=== PATIENT | female | born 1995 | race Caucasian/White ===

== ENCOUNTER 2019-02-07 12:03 | Outpatient (REF) | payer MEDICAID, SELFPAY ==
[2019-02-07 18:56] LABS: HCT 40.9 % (36.0-46.0); HGB 14.5 g/dL (12.0-15.5); Mean Corp. HGB Concentration 35.5 g/dL (32.0-36.0); Mean Corpuscular Hemoglobin 31.8 pg (27.0-33.0); Mean Corpuscular Volume 89.7 fL (80-95); Mean Platelet Volume 10.7 fL (8.0-11.0); Platelet Count 285 x1000/uL (130-400); RBC 4.56 m/cumm (4.00-5.20); RBC Distribution Width 11.3 % (11.7-14.6); White Blood Cell Count 5.64 k/cumm (4.4-10.8)
[2019-02-07 19:16] LABS: Albumin 3.8 g/dL (3.4-5.0); C-Reactive Protein 0.15 mg/dL (0.0-0.3); TSH 0.98 uIU/mL (0.36-3.74)
[2019-02-07 19:37] LABS: ESR 23 mm/hr (0-20)
== END 2019-02-07 12:23 ==
LOC: NCHCN 12:03
PROVIDERS: PCP Internal Medicine; Visit Provider Internal Medicine
DX: K62.5 Hemorrhage of anus and rectum (principal); Z00.00 Encounter for general adult medical examination without abnormal findings
CPT/HCPCS: 85027; 85652; 82040; 84443; 86140

== ENCOUNTER 2024-03-05 11:07 | Emergency (ER) | payer MEDICAID, SELFPAY ==
[2024-03-05 11:15] VITALS: BP 142/83; PULSE 90; RESP 16; TEMP 36.7; O2SAT 98
--- NOTE | 2024-03-05 11:15 | DI.RAD_ITS ---
Exam(s) XR CHEST 2V PA LATERAL EXAM: XR CHEST 2V PA LATERAL CLINICAL HISTORY: shortness of breath. TECHNIQUE: 2D digital imaging was performed. COMPARISON: No exams were available for comparison FINDINGS: 2 views: Heart size is normal. The mediastinum is not widened. Lungs are clear. No infiltrates nor pleural effusions. IMPRESSION: No acute pulmonary findings. DATA REPOSITORY: RADIATION DOSE DELIVERED:
--- NOTE | 2024-03-05 11:28 | ED.GENADUL_ITS ---
Discharge Plan Disposition Patient Disposition: Home Condition: Stable Discharge Details Clinical Impression: Facial swelling Primary Care Provider: Lionel Herrera ED Provider: James Galdamez Home Meds and New Rx's Prescriptions: New prednisone 20 mg tablet See Rx Instructions .ROUTE .COMPLEX Qty: 24 0RF Rx Instructions: Take 60 mg daily for 4 days, then 40 mg daily for 4 days, then 20 mg daily for 4 days Continued aspirin 81 mg capsule 81 mg PO DAILY cholecalciferol (vitamin D3) 10 mcg/drop (400 unit/drop) drops 5 mcg PO DAILY Discharge Instructions Additional Instructions: Continue the famotidine and I have increased your prednisone dose If you not improving this week follow-up with your primary care provider You can take Benadryl as needed, follow dosing instructions on the packaging If you feel more ill or have severe worsening trouble breathing or symptoms such as persistent vomiting return to the emergency department for reevaluation HPI General Mode of arrival: ambulatory . Date/Time Provider Initiated Documentation: 03/05/24 11:21 . Limitations to Documentation: no limitations . Information obtained by: patient . History of Present Illness 28 year old F presents to the emergency department with the chief complaint of swollen face, described as moderate, Patient started experiencing this day(s) (4) and it has been constant. No relieving factors improve symptom(s), No exacerbating factors reported . Patient notes shortness of breath; denies chest pain, fever/chills and nausea/vomiting. Related Data Home Medications ?Medication ?Instructions ?Recorded ?Confirmed aspirin 81 mg capsule 81 mg PO DAILY 03/05/24 03/05/24 cholecalciferol (vitamin D3) 10 5 mcg PO DAILY 03/05/24 03/05/24 mcg/drop (400 unit/drop) oral drops prednisone 20 mg tablet See Rx Instructions .Route 03/05/24 .COMPLEX #24 tabs Previous Rx's ?Medication ?Instructions ?Recorded prednisone 20 mg tablet See Rx Instructions .Route 03/05/24 .COMPLEX #24 tabs Allergies Allergy/AdvReac Type Severity Reaction Status Date / Time No Known Allergies Allergy Unverified 03/05/24 11:34 General Stated Complaint: RashLesion PACHECO: 3 Review of Systems All systems reviewed & are unremarkable except as noted in HPI and below Constitutional Constitutional: Denies chills, Denies fever(s) and Denies weakness Cardiovascular Cardiovascular: Denies chest pain and Reports dyspnea Respiratory Respiratory: Denies cough and Reports dyspnea Gastrointestinal Gastrointestinal: Denies abdominal pain, Denies nausea and Denies vomiting Integumentary/Breasts Skin/Breast: Reports rash Neurologic Neurologic: Denies weakness Psychiatric Psychiatric: Denies depression Exam Const General: no acute distress Orientation: alert [facility] Head: normal to inspection Ears: external ears normal General nose exam: external nose normal Mouth: moist mucous membranes Eyes General: appearance normal, both eyes and all related structures Neck Neck: normal visual inspection Resp Effort & Inspection: normal respiratory effort and able to speak in complete sentences Auscultation: clear to auscultation bilaterally Cardio Jugular venous pressure: no JVD Rate: regular rate Heart Sounds: no murmurs GI Palpation: soft and nontender Skin General skin exam: erythema Neuro General: patient alert and patient oriented x3 Extrem General: normal to inspection Psych Mental Status: mental status grossly normal Course Vital Signs Vital signs: Vital Signs Temperature 36.7 C 03/05/24 11:15 Pulse 90 03/05/24 11:15 Respiratory Rate 16 03/05/24 11:15 Blood Pressure 142/83 H 03/05/24 11:15 Pulse Oximetry 98 03/05/24 11:15 Temperature 36.7 C 03/05/24 11:15 Temperature Source Oral 03/05/24 11:15 Pulse 90 03/05/24 11:15 Respiratory Rate 16 03/05/24 11:15 Blood Pressure 142/83 H 03/05/24 11:15 Blood Pressure Position Sitting 03/05/24 11:15 Pulse Oximetry 98 03/05/24 11:15 Oxygen Delivery Method Room Air 03/05/24 11:15 Oxygen Flow Rate 0 03/05/24 11:15 Pain Level 7 03/05/24 11:15 Medical Decision Making 28-year-old female who denies any significant past medical history comes in with swelling of her face and rashes on her arms since Thursday. She states this started after she ripped up an old rug. She denies any chest pain, abdominal pain, states she feels mildly short of breath. She speaking in full sentences on exam. No signs of respiratory distress. She is noted to have what appears to be hives on her forearms and also her face does appear swollen without sig nificant erythema. Lungs are clear on exam. Her symptoms seem consistent with an allergic reaction, given her lungs are clear and no abdominal symptoms doubt anaphylaxis. She has been on prednisone and famotidine prescribed by [facility] when she was seen there several days ago. I will check a CBC and to evaluate for possible electrolyte abnormalities and also give a dose of IV Benadryl and Solu-Medrol. She is got no mucous membrane lesions doubt Resendiz- Roe or TENS. I will obtain a chest x-ray to exclude a thoracic mass as the cause of her facial swelling. Patient feeling better, rash on forearms has resolved, still's mild swelling of her face. She is only on 20 mg of prednisone I will bump this up to 60 mg daily for several days and then have her titrate down. She is stable for discharge and will follow-up with her PCP, return precautions given Differential Diagnosis Differential Diagnosis: Reaction, urticaria, facial edema. Quality:SDOH Health Related Social Needs: No Data to Display PFSH All Active Problems (Updated 03/05/24 @ 12:46 by James Galdamez MD) Facial swelling (Acute) Social History Smoking risk assessment performed?: No
[2024-03-05] MEDS: diphenhydrAMINE 50 MG/ML VIAL 25 MG IVP (11:52)
[2024-03-05] MEDS: methylPREDNISolone SUCC 125 MG VIAL IVP (11:53)
[2024-03-05 11:54] LABS: Abs Immature Grans 0.06 10^3/uL (0.0-0.06); Absolute Basophil Count 0.05 10^3/uL (0.0-0.2); Absolute Eosinophil Count 0.08 10^3/uL (0.0-0.7); Absolute Lymphocyte Count 1.18 10^3/uL (1.2-3.4); Absolute Monocyte Count 0.25 10^3/uL (0.1-0.8); Absolute Neutrophil Count 8.59 10^3/uL (1.2-6.7); Basophils % 0.5 %; Eosinophils % 0.8 %; HCT 45.4 % (36.0-46.0); HGB 15.3 g/dL (11.2-15.7); Immature Grans % 0.6 %; Lymphocytes % 11.6 %; MCH 31.4 pg (27.0-33.0); MCHC 33.7 % (32.0-36.0); MCV 93 fL (80-95); MPV 10.1 fL (8.0-11.0); Monocytes % 2.4 %; Neutrophils % 84.1 %; Platelet Count 290 10^3/uL (130-400); RBC 4.88 10^6/uL (3.93-5.22); RDW 11.2 % (11.7-14.6); RDW-SD 38.4 fL; WBC 10.21 10^3/uL (4.4-10.8)
[2024-03-05] MEDS: Normal Saline Flush 10 ML SYR IVP (11:56)
[2024-03-05 12:08] LABS: ALT 23 U/L (14-59); AST 10 U/L (15-37); Albumin 3.9 g/dL (3.4-5.0); Alkaline Phosphatase 84 U/L (46-116); BUN 9 mg/dL (7-18); Bilirubin, Total 0.29 mg/dL (0.2-1.0); CREATININE 0.9 mg/dL (0.55-1.02); Calcium 8.9 mg/dL (8.5-10.1); Chloride 106 mmol/L (98-107); Glucose 101 mg/dL (74-106); Magnesium 1.9 mg/dL (1.8-2.4); Potassium 3.9 mmol/L (3.5-5.1); Sodium 142 mmol/L (136-145); Total Protein 7.9 g/dL (6.4-8.2)
[2024-03-05 12:11] LABS: HCG Qual (Serum) Negative
--- NOTE | 2024-03-05 12:34 | DI.VRAD_ITS ---
PROCEDURE INFORMATION: Exam: XR Chest Exam date and time: 03/05/2024 12:16 PM Age: 28 years old Clinical indication: Shortness of breath TECHNIQUE: Imaging protocol: Radiologic exam of the chest. Views: 2 views. COMPARISON: No relevant prior studies available. FINDINGS: Lungs: Unremarkable. No consolidation. Pleural spaces: Unremarkable. No pleural effusion. No pneumothorax. Heart/Mediastinum: Unremarkable. No cardiomegaly. Bones/joints: Unremarkable. IMPRESSION: No acute findings. Dictated and Authenticated by: Subha Kennedy MD. Ordering:KATELYN Ramirez MD
[2024-03-05 12:43] VITALS: BP 148/74; PULSE 69; RESP 16; O2SAT 100
--- OUTSIDE RECORDS SUMMARY | 2024-03-05 12:46 | XMS_ITS | Continuity of Care Document ---
Author Organization [facility] Address [address] [place] [address] Encounter [facility] Date(s): 09/01/22 - 09/01/22 [facility] [address] [place] [address] Encounter Diagnosis Asthma exacerbation(Discharge Diagnosis) - 09/01/22 Unspecified asthma with (acute) exacerbation(Final) - Discharge Disposition: Home or Self Care Attending Physician: Lionel Jackson MD Admitting Physician: Lionel Jackson MD Functional Status 09/01/22 Family Member Travel History Last travel within 7 days Recent Travel History No recent travel Other exposure to Infectious Disease Non e Medications albuterol 90 mcg/inh aerosol inhaler 1 puffs, Inhale, every 4 hr, PRN as needed for wheezing, # 8 g, 0 Refill(s), 09/09/22 11:30:00 EDT,Pharmacy: [facility], 157.5, cm, 09/01/22 10:46:00 EDT, Height/Length Dosing, 59, kg, 09/01/22 10:46:00 EDT, Weight Dosing Start Date: 09/01/22 Stop Date: 09/09/22 Status: Ordered predniSONE 20 mg oral tablet 20 mg = 1 tab, Oral, Daily, X 2 days, # 2 tab, 0 Refill(s), 09/03/22 11:29:00 EDT, Pharmacy: [facility], 157.5, cm, 09/01/22 10:46:00 EDT, Height/Length Dosing, 59, kg, 09/01/22 10:46:00 EDT, Weight Dosing Start Date: 09/01/22 Stop Date: 09/03/22 Status: Ordered Elite 0 Refill(s) Start Date: 09/01/22 Status: Ordered Vital Signs Most recent to oldest [Reference Range]: 1 Temperature Temporal Artery [36-38 Deg C ] 36.6 Deg C (09/01/22 10:39 AM) Temperature Temporal Artery (DegF) [97.3 -100 Deg F] 97.88 Deg F (09/01/22 10:39 AM) Peripheral Pulse Rate [60-100 bpm] 97 bp m (09/01/22 10:39 AM) Respiratory Rate [12-24 br/min] 22 br/mi n (09/01/22 10:39 AM) Blood Pressure [90-140/60-90 mmHg] 133/7 1mmHg (09/01/22 10:39 AM) Weight Dosing 59.00 kg (09/01/22 10:46 AM) Weight Estimated 59.00 kg (09/01/22 10:39 AM) Height/Length Dosing 157.500 cm (09/01/22 10:46 AM) Height/Length Estimated 157.500 cm (09/01/22 10:39 AM) Social History Social History Type Response Tobacco Never tobacco user T obacco Use:. Sex Female Hospital Discharge Instructions Patient Education 09/01/2022 10:31:10 Asthma Attack Asthma Attack Asthma attack, also called acute bronchospasm, is the sudden narrowing and tightening of the air passages, which limits the amount of oxygen that can get into the lungs. The narrowing is caused by inflammation and tightening of the muscles in the air tubes (bronchi) in the lungs. Too much mucus is also produced, which narrows the airways more. This can cause trouble breathing, loud breathing (wheezing), and coughing. The goal of treatment is to open the airways in the lungs and reduce inflammation. What are the causes? Possible causes or triggers of this condition include: ??? Animal dander, dust mites, or cockroaches. ??? Mold, pollen from trees or grass, or cold air. ??? Air pollutants such as dust, household wildlife conservation professor, aerosol sprays, strong chemicals, strong odors, and smoke of any kind. ??? Stress or strong emotions such as crying or laughing hard. ??? Exercise or activity that requires a lot of energy. ??? Substances in foods and drinks, such as dried fruits and wine, called sulfites. ??? Certain medicines or medical conditions such as: ??? Aspirin or beta-blockers. ??? Infections or inflammatory conditions, such as a flu (influenza), a cold, pneumonia, or inflammation of the nasal membranes (rhinitis). ??? Gastroesophageal reflux disease (GERD). GERD is a condition in which stomach acid backs up intoyour esophagus and spills into your trachea (windpipe), which can irritate your airways. What are the signs or symptoms? Symptoms of this condition include: ??? Wheezing. This may sound like whistling while breathing. This may only happen at night. ??? Excessive coughing. This may only happen at night. ??? Chest tightness or pain. ??? Shortness of breath. ??? Feeling like you cannot get enough air no matter how hard you breathe (air hunger). How is this diagnosed? This condition may be diagnosed based on: ??? Your medical history. ??? Your symptoms. ??? A physical exam. ??? Tests to check for other causes of your symptoms or other conditions that may have triggered your asthma attack. These tests may include: ??? A chest X-ray. ??? Blood tests. ??? Tests to assess lung function, such as breathing into a device that measures how much air you can inhale and exhale (spirometry). How is this treated? Treatment for this condition depends on the severity and cause of your asthma attack. ??? For mild attacks, you may receive medicines through a hand-held inhaler (metered dose inhaler, or MDI) or through a device that turns liquid medicine into a mist (nebulizer). These medicines include: ??? Quick relief or rescue medicines that quickly relax the airways and lungs. ??? Long-acting medicines that are used daily to prevent (control) your asthma symptoms. ??? For moderate or severe attacks, you may be treated with steroid medicines by mouth or through an IV injection at the hospital. ??? For severe attacks, you may need oxygen therapy or a breathing machine (ventilator). ??? If your asthma attack was caused by an infection from bacteria, you will be given antibiotic medicines. Follow these instructions at home: Medicines ??? Take xlod-yct-wsutmoa and prescription medicines only as told by your health care provider. ??? Keep your medicines up-to-date. ??? Make sure you have all of your medicines available at all times. ??? If you were prescribed an antibiotic medicine, take it as told by your health care provider. Donot stop taking the antibiotic even if you start to feel better. ??? Tell your doctor if you may be to make sure your asthma medicine is safe to use duringpregnancy. Avoiding triggers ??? Keep track of things that trigger your asthma attacks. Avoid exposure to these triggers. ??? Do not use any products that contain nicotine or tobacco, such as cigarettes, e-cigarettes, andchewing tobacco. If you need help quitting, ask your health care provider. ??? When there is a lot of pollen, air pollution, or humidity, keep windows closed and use an air conditioner or go to places with air conditioning. Asthma action plan ??? Work with your health care provider to make a written plan for managing and treating your asthma attacks (asthma action plan). This plan should include: ??? A list of your asthma triggers and how to avoid them. ??? A list of symptoms that you may have during an asthma attack. ??? Information about which medicine to take, when to take the medicine and how much of the medicine to take. ??? Information to help you understand your peak flow measurements. ??? Daily actions that you can take to control your asthma symptoms. ??? Contact information for your health care providers. ??? If you have an asthma attack, act quickly. Follow the emergency steps on your written asthma action plan. This may prevent you from needing to go to the hospital. General instructions ??? Avoid excessive exercise or activity until your asthma attack goes away. Ask your health care provider what activities are safe for you and when you can return to your normal activities. ??? Stay up to date on all your vaccines, such as flu and pneumonia vaccines. ??? Drink enough fluid to keep your urine pale yellow. Staying hydrated helps keep mucus in your lungs thin so it can be coughed up easily. ??? Do not use alcohol until you have recovered. ??? Keep all follow-up visits as told by your health care provider. This is important. Asthma requires careful medical care. Contact a health care provider if: ??? You have followed your action plan for 1 hour and your peak flow reading is still at 50???79%. This is in the yellow zone, which means caution. ??? You need to use your quick reliever medicine more frequently than normal. ??? Your medicines are causing side effects, such as rash, itching, swelling, or trouble breathing. ??? Your symptoms do not improve after 48 hours. ??? You cough up mucus that is thicker than usual. ??? You have a fever. Get help right away if: ??? Your peak flow reading is less than 50% of your personal best. This is in the red zone, which means danger. ??? You have trouble breathing. ??? You develop chest pain or discomfort. ??? Your medicines no longer seem to be helping. ??? You are coughing up bloody mucus. ??? You have a fever and your symptoms suddenly get worse. ??? You have trouble swallowing. ??? You feel very tired, and breathing becomes tiring. These symptoms may represent a serious problem that is an emergency. Do not wait to see if the symptoms will go away. Get medical help right away. Call your local emergency services (911 in the [place] Do not drive yourself to the hospital. Summary ??? Asthma attacks are caused by narrowing or tightness in air passages, which causes shortness of breath, coughing, and loud breathing (wheezing). ??? Many things can trigger an asthma attack, such as allergens, weather changes, exercise, strong odors, and smoke of any kind. ??? If you have an asthma attack, act quickly. Follow the emergency steps on your written asthma action plan. ??? Get help right away if you have severe trouble breathing, chest pain, or fever, or if your homemedicines are no longer helping with your symptoms. This information is not intended to replace advice given to you by your health care provider. Make sure you discuss any questions you have with your health care provider. Document Revised: 03/27/2020 Document Reviewed: 03/27/2020 [employer] Patient Education ?? 2021 [employer]. 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 It feels tight 99% on RA, pt states I'm 10 weeks . it's slowly getting better, it was worse earlier History Of Present Illness: 26-year-old female past medical history asthma??currently 10 weeks presents with asthma exacerbation.?? She states she typically has an inhaler at home??to help with her symptoms however sheis currently in the out in [place] and visiting back home and she does not have any of hermedications with her. ??She had some upper respiratory symptoms with cough cold congestion, no fevers, this started yesterday,??and she woke up this morning short of breath and wheezing. ??Came into the ED for evaluation. ??Denies any other symptoms no nausea vomiting chest pain abdominal pain. Review of Systems: Wheezing, dyspnea Physical Exam Vitals & Measurements T:??36.6?C ??(Temporal Artery)?? HR:??97??(Peripheral)?? RR:??22?? BP:??133/71?? SpO2:??99%?? HT:??157.500??cm?? WT:??59.00??kg??(Estimated)?? O2 Therapy:??Room air?? General: Alert and oriented, well nourished,?No??acute distress Eye: PERRL, EOMI,?Normal?conjunctiva HENT: Normocephalic Lungs: Slight wheezing bilaterally,?Non-labored?? respiration Heart:?Normal? rate,?Regular??rhythm Skin: Skin is warm, dry and pink,?No??rashes,?No??lesions Neurologic: Awake, alert and oriented X4 Psychiatric: Cooperative, appropriate mood and affect Medical Decision Makin-year-old female presents with asthma exacerbation, likely etiology upper respiratory infection??with cough cold congestion symptoms starting yesterday and wheezing and dyspnea starting today.?? She is in the out in [place] at the moment and does not have??any??of her medications here??at home. ??36.6, 133/71, 97, 22, 99%.?? She is wheezing bilaterally but not significantly and in no acute respiratory distress speaking in full sentences.?? Patient was given DuoNebs, did have improvement subjectively in her breathing, feels like she is ready to go home. ??She was given 2 more days of prednisone 20 mg tablets as well as??an inhaler to go home with an inhaler prescription.?? Given strict return precautions ED. ??Discharge stable condition with primary care follow-up. Procedure No Qualifying Data Assessment/Plan 1.??Asthma exacerbation??J45.901 Ordered: albuterol 90 mcg/inh aerosol inhaler, 1 puffs, Inhale, every 4 hr, PRN as needed for wheezing, # 8 g, 0 Refill(s), 09/09/22 11:30:00 EDT, Pharmacy: [facility], 157.5, cm, 09/01/22 10:46:00 EDT, Height/Length Dosing, 59, kg, 09/01/22 10:46:00 EDT, Weight Dosing predniSONE 20 mg oral tablet, 20 mg = 1 tab, Oral, Daily, X 2 days, # 2 tab, 0 Refill(s), 09/03/22 11:29:00 EDT, Pharmacy: [facility], 157.5, cm, 09/01/22 10:46:00 EDT, Height/Length Dosing, 59, kg, 09/01/22 10:46:00 EDT, Weight Dosing Discharge Patient, 09/01/22 11:29:00 EDT, Home Independently, Constant Indicator ?? Patient Education Asthma Attack Follow Up With When Contact Information Follow up with primary care provider Within 1 month Additional Instructions: Medication Reconciliation New Prescription albuterol (albuterol 90 mcg/inh aerosol inhaler)1 Puffs Inhale (breathe in) every 4 hours as neededas needed for wheezing. Refills: 0. ?? predniSONE (predniSONE 20 mg oral tablet)1 tab Oral (given by mouth) every day for 2 Days. Refills:0. ?? Unchanged multivitamin, ( Elite) Problem List/Past Medical History Ongoing No qualifying data Historical No qualifying data Medication Administration Given !-DuoNeb, 3 mL, Inhale albuterol 90 mcg/inh aerosol inhaler, 1 inh, Inhale predniSONE, 20 mg, Oral Allergies No active allergies Social History Alcohol Never Electronic Cigarette/Vaping Electronic Cigarette Use: Never. Substance Use Never Tobacco Never tobacco user Tobacco Use:. Electronically Signed on 09/01/22 11:31 AM Manish Waldrop MD Emergency department Discharge instructions * Manish Waldrop MD: PERFORM Event Display: ED Discharge Information Authored Date: [id number] LEO KU :1995 Age:26 years Sex:Female Visit Date:09/01/2022 Discharge Instructions We would like to thank you for allowing us to assist you with your healthcare needs. The following includes patient education materials and information regarding your injury/illness. Diagnosis from Today's Visit Asthma exacerbation Discharge Vitals Temperature??(Temporal Artery) 97.9 ??F (36.6 ??C) Heart Rate??(Peripheral) 97 Respiratory Rate?? 22 Blood Pressure?? 133/71?? Height?? 62.01 in (157.500 cm) Weight??(Estimated) 130.10 lb (59.00 kg) Allergies No active allergies What to Do Next You Need to Schedule the Following Appointments Follow Up with??Follow up with primary care provider When:??Within 1 month You were treated today on an emergency basis; it may be herring to contact your primary care provider to notify them of your visit today. You may have been referred to your regular doctor or a specialist, please follow up as instructed. If your condition worsens or you can't get in to see the doctor, contact the Emergency Department. Medications What How Much When Why Instructions Next Dose New albuterol (albuterol 90 mcg/ inh aerosol inhaler) 1 Puffs Inhale (breathe in) Every 4 hours as needed for as needed for wheezing Asthma exacerbation Pickup at [facility] New predniSONE (predniSONE 20 mg oral tablet) 1 tab Oral (given by mouth) Every day Asthma exacerbation Duration: 2 Days Pickup at [facility] Unchanged multivitamin, ( Elite) Pharmacy Information [facility]: [address], [place] [phone] Education Materials Asthma Attack Asthma attack, also called acute bronchospasm, is the sudden narrowing and tightening of the air passages, which limits the amount of oxygen that can get into the lungs. The narrowing is caused by inflammation and tightening of the muscles in the air tubes (bronchi) in the lungs. Too much mucus is also produced, which narrows the airways more. This can cause trouble breathing, loud breathing (wheezing), and coughing. The goal of treatment is to open the airways in the lungs and reduce inflammation. What are the causes? Possible causes or triggers of this condition include: ? Animal dander, dust mites, or cockroaches. ? Mold, pollen from trees or grass, or cold air. ? Air pollutants such as dust, household wildlife conservation professor, aerosol sprays, strong chemicals, strong odors, and smoke of any kind. ? Stress or strong emotions such as crying or laughing hard. ? Exercise or activity that requires a lot of energy. ? Substances in foods and drinks, such as dried fruits and wine, called sulfites. ? Certain medicines or medical conditions such as: ? Aspirin or beta-blockers. ? Infections or inflammatory conditions, such as a flu (influenza), a cold, pneumonia, or inflammation of the nasal membranes (rhinitis). ? Gastroesophageal reflux disease (GERD). GERD is a condition in which stomach acid backs up into your esophagus and spills into your trachea (windpipe), which can irritate your airways. What are the signs or symptoms? Symptoms of this condition include: ? Wheezing. This may sound like whistling while breathing. This may only happen at night. ? Excessive coughing. This may only happen at night. ? Chest tightness or pain. ? Shortness of breath. ? Feeling like you cannot get enough air no matter how hard you breathe (air hunger). How is this diagnosed? This condition may be diagnosed based on: ? Your medical history. ? Your symptoms. ? A physical exam. ? Tests to check for other causes of your symptoms or other conditions that may have triggered your asthma attack. These tests may include: ? A chest X-ray. ? Blood tests. ? Tests to assess lung function, such as breathing into a device that measures how much air you can inhale and exhale (spirometry). How is this treated? Treatment for this condition depends on the severity and cause of your asthma attack. ? For mild attacks, you may receive medicines through a hand-held inhaler (metered dose inhaler, or MDI) or through a device that turns liquid medicine into a mist (nebulizer). These medicines include: ? Quick relief or rescue medicines that quickly relax the airways and lungs. ? Long-acting medicines that are used daily to prevent (control) your asthma symptoms. ? For moderate or severe attacks, you may be treated with steroid medicines by mouth or through an IVinjection at the hospital. ? For severe attacks, you may need oxygen therapy or a breathing machine (ventilator). ? If your asthma attack was caused by an infection from bacteria, you will be given antibiotic medicines. Follow these instructions at home: Medicines ? Take dbsd-xlg-gajckhv and prescription medicines only as told by your health care provider. ? Keep your medicines up-to-date. ? Make sure you have all of your medicines available at all times. ? If you were prescribed an antibiotic medicine, take it as told by your health care provider. Do notstop taking the antibiotic even if you start to feel better. ? Tell your doctor if you may be to make sure your asthma medicine is safe to use during . Avoiding triggers ? Keep track of things that trigger your asthma attacks. Avoid exposure to these triggers. ? Do not use any products that contain nicotine or tobacco, such as cigarettes, e- cigarettes, and chewing tobacco. If you need help quitting, ask your health care provider. ? When there is a lot of pollen, air pollution, or humidity, keep windows closed and use an air conditioner or go to places with air conditioning. Asthma action plan ? Work with your health care provider to make a written plan for managing and treating your asthma attacks (asthma action plan). This plan should include: ? A list of your asthma triggers and how to avoid them. ? A list of symptoms that you may have during an asthma attack. ? Information about which medicine to take, when to take the medicine and how much of the medicine totake. ? Information to help you understand your peak flow measurements. ? Daily actions that you can take to control your asthma symptoms. ? Contact information for your health care providers. ? If you have an asthma attack, act quickly. Follow the emergency steps on your written asthma actionplan. This may prevent you from needing to go to the hospital. General instructions ? Avoid excessive exercise or activity until your asthma attack goes away. Ask your health care provider what activities are safe for you and when you can return to your normal activities. ? Stay up to date on all your vaccines, such as flu and pneumonia vaccines. ? Drink enough fluid to keep your urine pale yellow. Staying hydrated helps keep mucus in your lungs thin so it can be coughed up easily. ? Do not use alcohol until you have recovered. ? Keep all follow-up visits as told by your health care provider. This is important. Asthma requires careful medical care. Contact a health care provider if: ? You have followed your action plan for 1 hour and your peak flow reading is still at 50???79%. Thisis in the yellow zone, which means caution. ? You need to use your quick reliever medicine more frequently than normal. ? Your medicines are causing side effects, such as rash, itching, swelling, or trouble breathing. ? Your symptoms do not improve after 48 hours. ? You cough up mucus that is thicker than usual. ? You have a fever. Get help right away if: ? Your peak flow reading is less than 50% of your personal best. This is in the red zone, which meansdanger. ? You have trouble breathing. ? You develop chest pain or discomfort. ? Your medicines no longer seem to be helping. ? You are coughing up bloody mucus. ? You have a fever and your symptoms suddenly get worse. ? You have trouble swallowing. ? You feel very tired, and breathing becomes tiring. These symptoms may represent a serious problem that is an emergency. Do not wait to see if the symptoms will go away. Get medical help right away. Call your local emergency services (911 in the [place] Do not drive yourself to the hospital. Summary ? Asthma attacks are caused by narrowing or tightness in air passages, which causes shortness of breath, coughing, and loud breathing (wheezing). ? Many things can trigger an asthma attack, such as allergens, weather changes, exercise, strong odors, and smoke of any kind. ? If you have an asthma attack, act quickly. Follow the emergency steps on your written asthma actionplan. ? Get help right away if you have severe trouble breathing, chest pain, or fever, or if your home medicines are no longer helping with your symptoms. This information is not intended to replace advice given to you by your health care provider. Make sure you discuss any questions you have with your health care provider. Document Revised: 03/27/2020 Document Reviewed: 03/27/2020 [employer] Patient Education ?? 2021 [employer] Tests Performed Medications and Immunizations Administered Given !-DuoNeb, 3 mL, Inhale albuterol 90 mcg/inh aerosol inhaler, 1 inh, Inhale predniSONE, 20 mg, Oral Patient/Regulatory Specialist Signature Patient Name:LEO KU I have received this information and my questions have been answered. Patient/Regulatory Specialist Name: Patient/Regulatory Specialist Signature: Relationship to Patient: Witness Name/Signature: Date: Electronically Signed on: 09/01/2022 11:31 EDTSigned by:[facility] Emergency department Note * Elo Leon M: PERFORM Event Display: ED Notes Authored Date: [id number] Patient Care team information Care Team Personnel Name: Nidia Johnson Position: Nurse Member Role: ED Nurse Name: Manish Waldrop MD Position: Physician Member Role: ED Physician Address: Address: [facility] [address], [place] [address] Care Team Related Persons Name: NIDIA CROCKETT
--- OUTSIDE RECORDS SUMMARY | 2024-03-05 12:46 | XMS_ITS | Continuity of Care Document ---
Author Organization [facility] Address [address] [place] [address] Encounter [id number] Date(s): 09/08/22 - 09/08/22 [facility] [address] [place] [address] Encounter Diagnosis Viral respiratory infection(Discharge Diagnosis) - 09/08/22 Other viral agents as the cause of diseases classified elsewhere(Discharge Diagnosis) - 09/08/22 Seasonal allergies(Discharge Diagnosis) - 09/08/22 Viral sinorhinitis(Discharge Diagnosis) - 09/08/22 Discharge Disposition: Home or Self Care Attending Physician: Iveth Castro MD Admitting Physician: Iveth Castro MD Allergies, Adverse Reactions, Alerts No Known Medication Allergies Medications albuterol 90 mcg/inh aerosol inhaler 1 puffs, Inhale, every 4 hr, PRN as needed for wheezing, # 8 g, 0 Refill(s), 09/09/22 11:30:00 EDT,Pharmacy: [facility] #[id number], 157.5, cm, 09/01/22 10:46:00 EDT, Height/Length Dosing, 59, kg, 09/01/22 10:46:00 EDT, Weight Dosing Start Date: 09/01/22 Stop Date: 09/09/22 Status: Ordered Elite 0 Refill(s) Start Date: 09/01/22 Status: Ordered Vital Signs Most recent to oldest [Reference Range]: 1 Temperature Temporal Artery [36-38 Deg C ] 36.6 Deg C (09/08/22 6:28 PM) Peripheral Pulse Rate [60-100 bpm] 89 bp m (09/08/22 6:28 PM) Respiratory Rate [12-24 br/min] 16 br/mi n (09/08/22 6:28 PM) Blood Pressure [90-140/60-90 mmHg] 111/7 5mmHg (09/08/22 6:28 PM) Weight Dosing 61.00 kg (09/08/22 6:32 PM) Weight Estimated 61.00 kg (09/08/22 6:28 PM) Height/Length Dosing 157.000 cm (09/08/22 6:32 PM) Height/Length Estimated 157.000 cm (09/08/22 6:28 PM) Social History Social History Type Response Tobacco Never tobacco user T obacco Use:. Sex Female Hospital Discharge Instructions Patient Education 09/08/2022 17:52:36 Allergic Rhinitis, Adult Allergic Rhinitis, Adult Allergic rhinitis is an allergic reaction that affects the mucous membrane inside the nose. The mucous membrane is the tissue that produces mucus. There are two types of allergic rhinitis: ??? Seasonal. This type is also called hay fever and happens only during certain seasons. ??? Perennial. This type can happen at any time of the year. Allergic rhinitis cannot be spread from person to person. This condition can be mild, moderate, or severe. It can develop at any age and may be outgrown. What are the causes? This condition is caused by allergens. These are things that can cause an allergic reaction. Allergens may differ for seasonal allergic rhinitis and perennial allergic rhinitis. ??? Seasonal allergic rhinitis is triggered by pollen. Pollen can come from grasses, trees, and weeds. ??? Perennial allergic rhinitis may be triggered by: ??? Dust mites. ??? Proteins in a pet's urine, saliva, or dander. Dander is skin cells from a pet. ??? Smoke, mold, or car fumes. What increases the risk? You are more likely to develop this condition if you have a family history of allergies or other conditions related to allergies, including: ??? Allergic conjunctivitis. This is inflammation of parts of the eyes and eyelids. ??? Asthma. This condition affects the lungs and makes it hard to breathe. ??? Atopic dermatitis or eczema. This is alf (chronic) inflammation of the skin. ??? Food allergies. What are the signs or symptoms? Symptoms of this condition include: ??? Sneezing or coughing. ??? A stuffy nose (nasal congestion), itchy nose, or nasal discharge. ??? Itchy eyes and tearing of the eyes. ??? A feeling of mucus dripping down the back of your throat (postnasal drip). ??? Trouble sleeping. ??? Tiredness or fatigue. ??? Headache. ??? Sore throat. How is this diagnosed? This condition may be diagnosed with your symptoms, medical history, and physical exam. Your healthcare provider may check for related conditions, such as: ??? Asthma. ??? [place] eye. This is eye inflammation caused by infection (conjunctivitis). ??? Ear infection. ??? Upper respiratory infection. This is an infection in the nose, throat, or upper airways. You may also have tests to find out which allergens trigger your symptoms. These may include skin tests or blood tests. How is this treated? There is no cure for this condition, but treatment can help control symptoms. Treatment may include: ??? Taking medicines that block allergy symptoms, such as corticosteroids and antihistamines. Medicine may be given as a shot, nasal spray, or pill. ??? Avoiding any allergens. ??? Being exposed again and again to tiny amounts of allergens to help you build a defense against allergens (immunotherapy). This is done if other treatments have not helped. It may include: ??? Allergy shots. These are injected medicines that have small amounts of allergen in them. ??? Sublingual immunotherapy. This involves taking small doses of a medicine with allergen in it under your tongue. If these treatments do not work, your health care provider may prescribe newer, stronger medicines. Follow these instructions at home: Avoiding allergens Find out what you are allergic to and avoid those allergens. These are some things you can do to help avoid allergens: ??? If you have perennial allergies: ??? Replace carpet with wood, tile, or vinyl ede. Carpet can trap dander and dust. ??? Do not smoke. Do not allow smoking in your home. ??? Change your heating and air conditioning filters at least once a month. ??? If you have seasonal allergies, take these steps during allergy season: ??? Keep windows closed as much as possible. ??? Plan outdoor activities when pollen counts are lowest. Check pollen counts before you plan outdoor activities. ??? When coming indoors, change clothing and shower before sitting on furniture or bedding. ??? If you have a pet in the house that produces allergens: ??? Keep the pet out of the bedroom. ??? Vacuum, sweep, and dust regularly. General instructions ??? Take bjel-zbv-sttbruw and prescription medicines only as told by your health care provider. ??? Drink enough fluid to keep your urine pale yellow. ??? Keep all follow-up visits as told by your health care provider. This is important. Where to find more information ? ? [employer]: www.aaaai.org Contact a health care provider if: ??? You have a fever. ??? You develop a cough that does not go away. ??? You make whistling sounds when you breathe (wheeze). ??? Your symptoms slow you down or stop you from doing your normal activities each day. Get help right away if: ??? You have shortness of breath. This symptom may represent a serious problem that is an emergency. Do not wait to see if the symptom will go away. Get medical help right away. Call your local emergency services (911 in the [place] Do not drive yourself to the hospital. Summary ??? Allergic rhinitis may be managed by taking medicines as directed and avoiding allergens. ??? If you have seasonal allergies, keep windows closed as much as possible during allergy season. ??? Contact your health care provider if you develop a fever or a cough that does not go away. This information is not intended to replace advice given to you by your health care provider. Make sure you discuss any questions you have with your health care provider. Document Revised: 05/18/2020 Document Reviewed: 03/27/2020 [employer] Patient Education ?? 2021 [employer]. Physician Emergency department Note * Virgie Harper MD: PERFORM Event Display: ED Note Physician Authored Date: [id number] LEO KU :1995 Age:26 years Sex:Female Visit Date:09/08/2022 Basic Information Time Seen: Virgie Harper MD / 09/08/2022 18:30 Chief Complaint Sick x1 week with congestion, runny nose, cough, REED. Denies fevers. History Of Present Illness: 26-year-old female??with history of asthma, currently 11 weeks ,??presents to the emergencydepartment for evaluation along with her 2 year old son that she also brought for evaluation of thesame symtpoms. Pt complaining of 1 week of nasal congestion, runny nose, cough, headache/facial pain. ??Headache takes the whole face, feels like pressure,??no associated photophobia, visual changes,??neck pain. ??Patient denies??fever.?? She has had no sore throat. ??She has had no nausea, vomiting, constipation or diarrhea.?? No abdominal pain. ??No dysuria or hematuria. She is visiting from [place] and says her allergies are worse here than they are there. ? Physical Exam Gen: Developmentally appropriate, non-toxic appearing. Infrequent cough observed. HEENT: NC, AT, PEERL, EOMI. No stridor or stertor. Posterior oropharynx with no erythema or exudate, no tonsilar swelling?? Resp: Clear to auscultation bilaterally. Unlabored respirations with a normal work of breathing. Nowheezing/crackles or rales heard.?? Card: Regular rate and rhythm. Extremities warm and well perfused.?? GI: Non-distended. : Deferred MSK: No visible deformities, strength and tone visually normal. Skin: Normal color with no visible lesions. Neuro: No facial asymmetry, EOMI, PERRL, moving all extremities without visible deficit. Heme: No visible abnormal bruising. ? MDM Previous chart, nursing note, and vitals reviewed.?? A: 26-year-old presents for evaluation of nasal congestion, runny nose, cough and headache. ?? Previous charts reviewed, vitals reviewed, nursing triage note reviewed.? DDx & Evaluation:?? Well and non toxic appearing on exam, breathing comfortably on r/a with no respiratory distress, speaking in full sentences.?? Presentation concerning for viral respiratory infection. History, vitals and pulmonary exam withoutevidence of features suggestive of pneumonia. No features suggestive of RPA, SENIOR OFFICE ASSISTANT, epiglottitis, or tonsillar cellulitis. Imaging not necessary at this time. No evidence of occult bacteremia/septicemia. ? Plan: conservative treatment wth plenty of fluids, Tylenol for fever/aches. f/u pcp 1-2 weeks prn. Discussed with patient, return precautions discussed, all questions answered.?? Physical Exam Vitals & Measurements T:??36.6?C ??(Temporal Artery)?? HR:??89??(Peripheral)?? RR:??16?? BP:??111/75?? SpO2:??96%?? HT:??157.000??cm?? WT:??61.00??kg??(Estimated)?? Pain Score:??4?? O2 Therapy:??Room air?? Procedure No Qualifying Data Assessment/Plan 1.??Viral respiratory infection??J98.8 Ordered: Discharge Patient, 09/08/22 18:52:00 EDT, Constant Indicator ?? 2.??Seasonal allergies??J30.2 Ordered: Discharge Patient, 09/08/22 18:52:00 EDT, Constant Indicator ?? 3.??Viral sinorhinitis??J01.90 Ordered: Discharge Patient, 09/08/22 18:52:00 EDT, Constant Indicator ?? Other viral agents as the cause of diseases classified elsewhere??B97.89 ?? Patient Education Allergic Rhinitis, Adult Medication Reconciliation Unchanged albuterol (albuterol 90 mcg/inh aerosol inhaler)1 Puffs Inhale (breathe in) every 4 hours as neededas needed for wheezing. Refills: 0. ?? multivitamin, ( Elite) Problem List/Past Medical History Ongoing No qualifying data Historical No qualifying data Allergies No Known Medication Allergies Social History Alcohol Never Electronic Cigarette/Vaping Electronic Cigarette Use: Never. Substance Use Never Tobacco Never tobacco user Tobacco Use:. Electronically Signed on 09/08/22 07:02 PM Virgie Harper MD Emergency department Discharge instructions * Virgie Harper MD: PERFORM Event Display: ED Discharge Information Authored Date: [id number] LEO KU :1995 Age:26 years Sex:Female Visit Date:09/08/2022 Discharge Instructions We would like to thank you for allowing us to assist you with your healthcare needs. The following includes patient education materials and information regarding your injury/illness. Diagnosis from Today's Visit Viral respiratory infection Seasonal allergies Viral sinorhinitis Other viral agents as the cause of diseases classified elsewhere Discharge Vitals Temperature??(Temporal Artery) 97.9 ??F (36.6 ??C) Heart Rate??(Peripheral) 89 Respiratory Rate?? 16 Blood Pressure?? 111/75?? Height?? 61.81 in (157.000 cm) Weight??(Estimated) 134.50 lb (61.00 kg) Allergies No Known Medication Allergies What to Do Next Instructions from Your Care Team Please continue conservative treatment with plenty of fluids, Claritin, you can try Benadryl instead and see if it works better for your congestion, keep an eye on how sleepy it can make you feel. Follow up with your primary care provider for reevaluation in 1-2 weeks. Return to the ED for any new or worsening symptoms. You were treated today on an emergency [...] How Much When Why Instructions Next Dose Unchanged albuterol (albuterol 90 mcg/ inh aerosol inhaler) 1 Puffs Inhale (breathe in) Every 4 hours as needed for as needed for wheezing Asthma exacerbation Unchanged multivitamin, ( Elite) Education Materials Allergic Rhinitis, Adult Allergic rhinitis is an allergic reaction that affects the mucous membrane inside the nose. The mucous membrane is the tissue that produces mucus. There are two types of allergic rhinitis: ? Seasonal. This type is also called hay fever and happens only during certain seasons. ? Perennial. This type can happen at any time of the year. Allergic rhinitis cannot be spread from person to person. This condition can be mild, moderate, or severe. It can develop at any age and may be outgrown. What are the causes? This condition is caused by allergens. These are things that can cause an allergic reaction. Allergens may differ for seasonal allergic rhinitis and perennial allergic rhinitis. ? Seasonal allergic rhinitis is triggered by pollen. Pollen can come from grasses, trees, and weeds. ? Perennial allergic rhinitis may be triggered by: ? Dust mites. ? Proteins in a pet's urine, saliva, or dander. Dander is skin cells from a pet. ? Smoke, mold, or car fumes. What increases the risk? You are more likely to develop this condition if you have a family history of allergies or other conditions related to allergies, including: ? Allergic conjunctivitis. This is inflammation of parts of the eyes and eyelids. ? Asthma. This condition affects the lungs and makes it hard to breathe. ? Atopic dermatitis or eczema. This is manager intermediate (chronic) inflammation of the skin. ? Food allergies. What are the signs or symptoms? Symptoms of this condition include: ? Sneezing or coughing. ? A stuffy nose (nasal congestion), itchy nose, or nasal discharge. ? Itchy eyes and tearing of the eyes. ? A feeling of mucus dripping down the back of your throat (postnasal drip). ? Trouble sleeping. ? Tiredness or fatigue. ? Headache. ? Sore throat. How is this diagnosed? This condition may be diagnosed with your symptoms, medical history, and physical exam. Your healthcare provider may check for related conditions, such as: ? Asthma. ? [place] eye. This is eye inflammation caused by infection (conjunctivitis). ? Ear infection. ? Upper respiratory infection. This is an infection in the nose, throat, or upper airways. You may also have tests to find out which allergens trigger your symptoms. These may include skin tests or blood tests. How is this treated? There is no cure for this condition, but treatment can help control symptoms. Treatment may include: ? Taking medicines that block allergy symptoms, such as corticosteroids and antihistamines. Medicine may be given as a shot, nasal spray, or pill. ? Avoiding any allergens. ? Being exposed again and again to tiny amounts of allergens to help you build a defense against allergens (immunotherapy). This is done if other treatments have not helped. It may include: ? Allergy shots. These are injected medicines that have small amounts of allergen in them. ? Sublingual immunotherapy. This involves taking small doses of a medicine with allergen in it under your tongue. If these treatments do not work, your health care provider may prescribe newer, stronger medicines. Follow these instructions at home: Avoiding allergens Find out what you are allergic to and avoid those allergens. These are some things you can do to help avoid allergens: ? If you have perennial allergies: ? Replace carpet with wood, tile, or vinyl eed. Carpet can trap dander and dust. ? Do not smoke. Do not allow smoking in your home. ? Change your heating and air conditioning filters at least once a month. ? If you have seasonal allergies, take these steps during allergy season: ? Keep windows closed as much as possible. ? Plan outdoor activities when pollen counts are lowest. Check pollen counts before you plan outdoor activities. ? When coming indoors, change clothing and shower before sitting on furniture or bedding. ? If you have a pet in the house that produces allergens: ? Keep the pet out of the bedroom. ? Vacuum, sweep, and dust regularly. General instructions ? Take spdk-euc-ygkibni and prescription medicines only as told by your health care provider. ? Drink enough fluid to keep your urine pale yellow. ? Keep all follow-up visits as told by your health care provider. This is important. Where to find more information ? [employer]: www.aaaai.org Contact a health care provider if: ? You have a fever. ? You develop a cough that does not go away. ? You make whistling sounds when you breathe (wheeze). ? Your symptoms slow you down or stop you from doing your normal activities each day. Get help right away if: ? You have shortness of breath. This symptom may represent a serious problem that is an emergency. Do not wait to see if the symptom will go away. Get medical help right away. Call your local emergency services (911 in the [place] Do not drive yourself to the hospital. Summary ? Allergic rhinitis may be managed by taking medicines as directed and avoiding allergens. ? If you have seasonal allergies, keep windows closed as much as possible during allergy season. ? Contact your health care provider if you develop a fever or a cough that does not go away. This information is not intended to replace advice given to you by your health care provider. Make sure you discuss any questions you have with your health care provider. Document Revised: 05/18/2020 Document Reviewed: 03/27/2020 [employer] Patient Education ?? 2021 [employer] Patient/Career Representative Signature Patient Name:LEO KU Armani I have received this information and my questions have been answered. Patient/Career Representative Name: Patient/Career Representative Signature: Relationship to Patient: Witness Name/Signature: Date: Electronically Signed on: 09/08/2022 18:55 EDTSigned by:HEIDI Emergency department Note * Mackenzie Mackey H: PERFORM Event Display: ED Notes Authored Date: [id number] Patient Care team information Care Team Personnel Name: Virgie Harper MD Position: Physician Member Role: ED Physician Address: Address: [address] [place] [id number]- Care Team Related Persons Name: BRANDON KU Address: Home [address] [place] [phone] Name: NICOLASA CROCKETT
--- OUTSIDE RECORDS SUMMARY | 2024-03-05 12:46 | XMS_ITS | Clinical Summary ---
Author Organization [facility] Address [facility] [place] [address] Care Team Providers Care Certifed Refrigeration Operator Name Role Phone Hilda SEARS MD, Kenji Blankenship Primary Care Provide r Medications Medication Sig Dispensed Refills Start Date End Date Status acetaminophen (TYLENOL) 500 mg tabletIndications:pain Take 500 mg by mouth every 6 hours as needed. Indications: Pain Active Active Problems Problem Noted Date Diagnosed Date Clavicle fracture, shaft 04/23/2011 Social History Tobacco Use Types Packs/Day Years Used Date Smoking Tobacco: Never Smokeless Tobacco: Never Sex and Gender Information Value Date Recorded Sex Assigned at Not on file Gender Identity Not on file Sexual Orientation Not on file Last Filed Vital Signs Vital Sign Reading Time Taken Comments Blood Pressure 102/62 04/23/2011 8:19 AM EST Pulse - - Temperature - - Respiratory Rate - - Oxygen Saturation - - Inhaled Oxygen Concentration - - Weight 50.3 kg (111 lb) 04/23/2011 8:19 AM EST Height 158.8 cm (5' 2.5) 04/23/2011 8:19 AM EST Body Mass Index 19.98 04/23/2011 8:19 AM EST Plan of Treatment Health Maintenance Due Date Last Done Comments HIV screen 10/04/2013 Hepatitis C Screening 10/04/2013 Hepatitis B vaccine (0-59 yrs) (1) 10/04/2014 Tetanus/Diphtheria/Pertussis Vaccines (1 - Tdap) 10/04 PAP Smear 10/04/2016 Covid-19 Vaccine (1 - season) 2023 Influenza (Flu) vaccine (1 o f 1 - Influenza standard series) 12/13/2023 Care Teams Certifed Refrigeration Operator Relationship Specialty Start Date End Date Kenji Stevens III, MD [address] [place] [address] [place] [id number] PCP - General 04/19/11
--- OUTSIDE RECORDS SUMMARY | 2024-03-05 12:47 | XMS_ITS | Continuity of Care Document ---
Author Organization [facility] Services Address [address] [place] [id number] Phone Care Team Providers Care [employer] Academic Coach Name Role Phone Emi Domingo MD Unavailable Unavailable Allergies, Adverse Reactions, Alerts Substance Reaction Status Criticality LEVONORGESTREL-ETHINYL ESTRADIOL Hives / Skin Rash Act bridgette No Information ethinyl estradiol Hives / Skin Rash Active No In formation Medications Medication Instructions Dosage Effective Dates (start - stop) Status Comments Anusol-HC 2.5 % topical cream with perineal applicator apply by topical route 1 - 2 times every day a thin layer to the affected area(s) Not Available - Active breast pump one electronic breast pump and supplies for 99 mths - Active ICD 10 code Z39.1. EDC: 04/09/23 Tylenol 325 mg tablet take 2 tablet by oral route every 6 hours as needed 650 MG - Active 28 mg iron-[address] 1 tablet by oral route every day 1 tablet - Active Procedures Procedure Date CYTOPATH, C/V, THIN LAYER CARE AFTER DELIVERY OB Patient n/c POSTOP FOLLOW-UP VISIT ANESTH/ANALG, VAG DELIVERY OBSTETRICAL CARE Antepartum OB n/c Antepartum OB n/c Antepartum OB n/c Antepartum OB n/c Admin Immun (1st only) TDAP VACCINE >7 IM Admin Immun (Each Addtl) (Verify Units) FLU VAC NO PRSV 4 EARLENE 3 YRS+ UB, OB, Re-Eval Organs, per fetus Doppler Velocimetry, , umbilical ar adriane Antepartum OB n/c Antepartum OB n/c US, OB, >/= 14 wks, 1 gestation 023 Antepartum OB n/c Antepartum OB n/c US, OB, < 14 wks, 1 gestation 3 US, OB, < 14 wks, 1 gestation 3 US, OB, Transvaginal Ofc/Outpt Visit, [facility], Level 3 3 EMERGENCY DEPT VISIT EMERGENCY DEPT VISIT Xray, Finger(s), min 2 views Ofc/Outpt Visit, [facility], Level 3 5 Advance Directives Directive Yes / No Effective Date File Name No Information Encounters Encounter Description Practice Location Reason(s) For Visit Diagnoses Date Provider Providers Copied on Encounter [facility], [address] [place] [address], [id number], tel:[phone] [facility] check (chief complaint) Encounter for routine follow-upEncou nter for gynecological examination (general) (routine) without abnormal findings 4 Jose L Middleton. [address] [place], [address], [place]. tel:[phone] [facility], [address] [place] [address], [id number], tel:[phone] [facility] No Information 3 Je Marcus. [address], [place], [id number], [place]. tel:[phone] [facility], [address] [place] [address], [id number], [place] tel:[phone] [facility] No Information 3 Joshua Urias. [address] [place] [address], [id number], [place]. tel:[phone] Referring Provider: Marely Crane, [address] [id number], [place], [address] . tel:[phone] [facility], [address] [place] [address], [id number], [place] tel:[phone] [facility] No Information Mar-2 3 Clarita Marely. [address], [id number] 0BN, [place], [place], [id number], [place]. tel: [phone] [facility], [address] [place] [address], [id number], [place] tel:[phone] [facility] No Information 3 Clarita Marely. [address], [id number] 0BN, [place], [place], [id number], [place]. tel: [phone] [facility], [address] [place] [address], [id number], [place] tel:[phone] [facility] No Information 3 Je Angeline. [address], [address], [place], [place], [id number], [place]. tel: [phone] [facility], [address] [place] [address], [id number], [place] tel:[phone] [facility] No Information 3 Clarita Marely. [address], [id number] 0BN, [place], [place], [id number], [place]. tel: [phone] [facility], [address] [place] [address], [id number], [place] tel:[phone] [facility] No Information 0 3 Jose L Middleton. [address], [place], [address], [place]. tel: [phone] [facility], [address] [place] [address], [id number], [place] tel:[phone] [facility] No Information 3 Clarita Marely. [address], [id number] 0BN, [place], [place], [id number], [place]. tel: [phone] [facility], [address] [place] [address], [id number], [place] tel:[phone] [facility] No Information [address] September[address], [id number] 0BN, [place], [place], [id number], [place]. tel: [phone] [facility], [address] [place] [address], [id number], [place] tel:[phone] [facility] No Information 3 Clarita Marely. [address], [id number] 0BN, [place], [place], [id number], [place]. tel: [phone] [facility], [address] [place] [address], [id number], [place] tel:[phone] [facility] No Information 3 Je Marcus. [address], [address], [place], [place], [id number], [place]. tel: [phone] [facility], [address] [place] [address], [id number], [place] tel:[phone] [facility] No Information [address], [id number] 0BN, [place], [place], [id number], [place]. tel:[phone] [facility], [address] [place] [address], [id number], [place] tel:[phone] [facility] No Information 3 Clarita Marely. [address], [id number] 0BN, [place], [place], [id number], [place]. tel:[phone] [facility], [address] [place] [address], [id number], [place] tel:[phone] [facility] No Information 3 Clarita Marely. [address], [id number] 0BN, [place], [place], [id number], [place]. tel: [phone] [facility], [address] [place] [address], [id number], [place] tel:[phone] [facility] No Information September. [address], [id number] [place], [id number], [place]. tel:[phone] [facility], [address] [place] [address], [id number], [place] tel:[phone] [facility] No Information September. [address], [id number] 0BN, [place], [place], [id number], [place]. tel: [phone] Ofc/Outpt Visit, New, Level 3 [facility], [address] [place] [address], [id number], [place] tel:[phone] [facility] bleeding in early (chief complaint) Bleeding in early 3 Clarita Marely. [address], [id number] [place], [id number], [place]. tel: [phone] EMERGENCY DEPT VISIT [facility], [address] [place] [address], [id number], tel:[phone] [facility] No Information 3 Leyla Brennan. [address] [place] [address], [id number], . tel:[phone] EMERGENCY DEPT VISIT [facility], [address] [place] [address], [id number], tel:[phone] [facility] No Information 2 Trace Denney. [address] [place] [address], [id number], [place]. tel:[phone] Ofc/Outpt Visit, [facility], Level 3 [facility], [address] [place] [address], [id number], tel:[phone] [facility] left ring finger (chief complaint) Finger pain, leftSwan-neck deformity, left 0 5 Yves Leyva. [address] [place] [address], [id number], . tel:[phone] Referring Provider: [employer], [address], [place], [address]. tel:[phone] [facility], [address] [place] [address], [id number], tel:[phone] [facility] No Information - 5 Yves Leyva. [address] [place] [address], [id number], . tel:[phone] Family History Family Member Type Diagnosis Age At Onset No Information Immunizations Vaccine Date Status Comments FLULAVAL QUAD [id number] administered Sour ce: New Immunization Record Tdap administered Source: New Imm unization Record Payers Payer name Insurance type Covered democrat ID Authoriza tion(s) Prime [id number] Prime [id number] Prime [id number] Social History Type Description Quantity Date Captured Comments Alcohol Use Details No Caffeine Use Details Unknown Tobacco Use Status Current non-smoker Smoking Status Never smoker Sex Female Yes - Patient is cur rently Vital Signs Date / Time: Height Weight BMI Pulse Rate Blood Pressure Temperature Respiratory Rate Body Surface Area Head Circumference Head Circ. Percentile Wt./Pk. Percentile BMI percentile Pulse Ox Inhaled Ox 3:42 PM 63.00 in 61.689 kg (136.00 lbs) 24.0 9 kg/m eter (2) 78 /min 104/60 mm[Hg] 97.70 F 96 % Chief Complaint And Reason For Visit From encounter dated '05/13/2023 15:04'. check (chief complaint). Description: The patient has no feeding complications, nursing difficulties, breast problems, vaginal bleeding, urinary problems or bowel problems. A depression screening was completed. The patient has no history of domestic violence or gestational diabetes. The patient has not resumed sexual activity, work or exercise. Additional Information: Marisela is doing well. She had an uneventful 04/01 female 7#10oz. No lacerations. She has recovered well. No vb/pelvic pain. Normal void/bm. BF well and good supply. No depression and epds 0. Only concern is a persistent hemorrhoid which bleeds with bm. No pain/bleeding except with bm.Pt unable to use exogenous hormones for contraception- full body itch rash. planning vasectomy. Reason For Referral Reason For Referral No Information Plan Of Treatment Date Type Action Status Goal Hepatitis C screening. Due o n due Goal Tdap due Goal PAP. Due on due Goal Colonoscopy. Due on 024 due Goal Depression screening. Due on due Goal FOBT. Due on due Goal FIT-DNA. Due on due Goal CT-Colonography. Due on due Goal FIT. Due on due Goal Influenza vaccine. Due on Oc due Goal Unhealthy drug u se screening. Due on due Goal Sigmoidoscopy. Due on due Goal FIT-DNA. Due on due Goal PAP. Due on due Goal Hepatitis C screening. Due o n due Goal Tdap due Goal FOBT. Due on due Goal Colonoscopy. Due on due Goal Depression screening. Due on due Goal CT-Colonography. Due on due Goal FIT. Due on due Goal Influenza vaccine. Due on Oc due Goal Unhealthy drug u se screening. Due on due Goal Sigmoidoscopy. Due on due Goal Colonoscopy. Due on due Goal Hepatitis C screening. Due o n due Goal Tdap due Goal Unhealthy drug u se screening. Due on due Goal Sigmoidoscopy. Due on due Goal PAP. Due on due Goal FIT-DNA. Due on due Goal FOBT. Due on due Goal Depression screening. Due on due Goal CT-Colonography. Due on due Goal FIT. Due on due Goal Influenza vaccine. Due on Oc due Goal FIT. Due on due Goal CT-Colonography. Due on due Goal Depression screening. Due on due Goal PAP. Due on due Goal FOBT. Due on due Goal Tdap due Goal Sigmoidoscopy. Due on due Goal Colonoscopy. Due on 023 due Goal FIT-DNA. Due on due Goal Hepatitis C screening. Due o n due Goal Influenza vaccine. Due on Oc due Goal Unhealthy drug u se screening. Due on due Goal FIT. Due on due Goal Colonoscopy. Due on 023 due Goal Hepatitis C screening. Due o n due Goal CT-Colonography. Due on due Goal FIT-DNA. Due on due Goal FOBT. Due on due Goal PAP. Due on due Goal Depression screening. Due on due Goal Unhealthy drug u se screening. Due on due Goal Influenza vaccine. Due on Oc due Goal Tdap due Goal Sigmoidoscopy. Due on due Goal FIT-DNA. Due on due Goal FOBT. Due on due Goal Sigmoidoscopy. Due on due Goal FIT. Due on due Goal Unhealthy drug u se screening. Due on due Goal Influenza vaccine. Due on Oc due Goal Depression screening. Due on due Goal Tdap due Goal CT-Colonography. Due on due Goal Hepatitis C screening. Due o n due Goal Colonoscopy. Due on due Goal PAP. Due on due Goal PAP. Due on due Goal Tdap. Due on due Goal Colonoscopy. Due on due Goal Sigmoidoscopy. Due on due Goal FOBT. Due on due Goal CT-Colonography. Due on due Goal Td vaccine. Due on due Goal FIT-DNA. Due on due Goal Hepatitis C screening. Due o n due Goal Depression screening. Due on due Goal Influenza vaccine. Due on Oc due Goal FIT. Due on due Goal Unhealthy drug u se screening. Due on due Goal Td vaccine. Due on due Goal CT-Colonography. Due on due Goal Sigmoidoscopy. Due on due Goal Depression screening. Due on due Goal Influenza vaccine. Due on due Goal Colonoscopy. Due on due Goal Hepatitis C screening. Due o n due Goal FIT-DNA. Due on due Goal PAP. Due on due Goal Unhealthy drug u se screening. Due on due Goal Tdap. Due on due Goal FIT. Due on due Goal FOBT. Due on due Goal Td vaccine. Due on due Goal Tdap. Due on due Goal Sigmoidoscopy. Due on due Goal Depression screening. Due on due Goal CT-Colonography. Due on due Goal Influenza vaccine. Due on due Goal PAP. Due on due Goal Unhealthy drug u se screening. Due on due Goal FOBT. Due on due Goal FIT. Due on due Goal Hepatitis C screening. Due o n due Goal FIT-DNA. Due on due Goal Colonoscopy. Due on due Goal Colonoscopy. Due on due Goal Td vaccine. Due on due Goal CT-Colonography. Due on due Goal FIT-DNA. Due on due Goal Influenza vaccine. Due on due Goal Hepatitis C screening. Due o n due Goal FIT. Due on due Goal FOBT. Due on due Goal Depression screening. Due on due Goal PAP. Due on due Goal Unhealthy drug u se screening. Due on due Goal Sigmoidoscopy. Due on due Goal Tdap. Due on due Goal Sigmoidoscopy. Due on due Goal Depression screening. Due on due Goal Unhealthy drug u se screening. Due on due Goal Hepatitis C screening. Due o n due Goal Td vaccine. Due on due Goal PAP. Due on due Goal FOBT. Due on due Goal Tdap. Due on due Goal FIT. Due on due Goal Colonoscopy. Due on due Goal CT-Colonography. Due on due Goal Influenza vaccine. Due on due Goal FIT-DNA. Due on due Goal Td vaccine. Due on due Goal Influenza vaccine. Due on due Goal Tdap. Due on due Goal PAP. Due on due Goal Depression screening. Due on due Goal Tdap. Due on due Goal Td vaccine. Due on due Goal Depression screening. Due on due Goal PAP. Due on due Goal Influenza vaccine. Due on due Future Order: Lab Order GROUP B STREP SCREEN BY PCR ([email or web address]), Sent on: Sent Future Order: Lab Order CBC/AUTO DIFF (CBC-1), Ordered on: Ordered Future Order: Lab Order QUANTITA TIVE BHCG (QHCG), Ordered on: Ordered History Of Present Illness Encounter Date Complaint History Of Prese nt Illness check The patient has no feeding complications, nursing difficulties, breast problems, vaginal bleeding, urinary problems or bowel problems. A depression screening was completed. The patient has no history of domestic violence or gestational diabetes. The patient has not resumed sexual activity, work or exercise. Additional Information: Marisela is doing well. She had an uneventful 04/01 female 7#10oz. No lacerations. She has recovered well. No vb/pelvic pain. Normal void/bm. BF well and good supply. No depression and epds 0. Only concern is a persistent hemorrhoid which bleeds with bm. No pain/bleeding except with bm.Pt unable to use exogenous hormones for contraception- full body itch rash. planning vasectomy. bleeding in early 26-y ear-old presents for ER follow-up. She is 6+ weeks with bleeding in early . She was seen in the ER on April 14 and there was still a pole with positive cardiac activity. She is continue to have bleeding and cramping. Her beta-hCG dropped from April [id number] to April [id number]. Bedside ultrasound today showed a possible gestational sac low in the uterus with no definitive crown-rump length or heart tones. She has follow-up ultrasound for confirmation tomorrow. left ring finger Functional Status Date Functional Assessmen t Pain Score 0/10 Instructions Date Instruction Additional Infor malik anesthesia / analgesia plans movement monitoring labor signs counseling signs and symptoms o f -induced hypertension postterm counseling domestic violence education (n ewborn screening, jaundice, SIDS, car seat) family medical leave or disability forms circumcision breast or bottle feeding depression influenza vaccine smoking counseling family pl anning / tubal sterilization domestic violence smoking counseling selecting a care provide r influenza vaccine abnormal lab values signs and symptoms of la bor travel environmental / work hazards childbirth classes / hospital facilities seat belt use domestic violence smoking counseling use of any medicatio ns (including supplements, vitamins, herbs, OTC drugs) illicit / recreational drugs alcohol tobacco (ask, advise , assess, assist and arrange) influenza vaccine indications for ultrasound exercise sexual activity toxoplasmosis precau tions (cats / raw meat) nutrition and weight gain counseling, special diet anticipated course of c are HIV and other routine t ests risk factors identif ied by history Discussed likely mis carriage in progress. Has formal ultrasound tomorrow to ascertain if gestational sac has passed or not. -Update no gestational sac noted on ultrasound the next day. Beta-hCG will be trended down. Related to Bleeding in early Activity as tolerate d. Follow up with me if she loses ability to actively flex the ring finger or if she repetitively jams the left ring finger on any objects or during activities. She can otherwise weight bear as tolerated and resume activities as tolerated. Related to [place]-neck deformity, left Assessments Type Assessment Date assessment Encounter for routine follow-up assessment Encounter for gyneco logical examination (general) (routine) without abnormal findings impression Crystal is having a good course. Planning vas. Will try anusol HC for 4 weeks and if hemorrhoid is persistent or has any bleeding will call us for referral to general surgery. Pap collected. RTC 1 yr or prn Mental Status Date Cognitive Assessment Orientation - [place] ed to time, place, person, situation. Patient Care Teams Name Effective Dates (start - stop) Status Members No Information
--- OUTSIDE RECORDS SUMMARY | 2024-03-05 12:47 | XMS_ITS | Encounter Summary ---
[place] [address] Care Team Providers Care Manager Retention Name Role Phone Hilda SEARS MD, Kenji Blankenship Primary Care Provide r Reason for Visit * Reason Comments Left Clavicle Fracture HOCKEY INJURY. DO I Encounter Details Date Type Department Care Team (Late st Contact Info) Description 04/23/2011 8:20 AM EST Office [place] [id number], [address] [place] Clavicle fracture, shaft (Primary Dx) Discharge Disposition: Home Social History Tobacco Use Types Packs/Day Years Used Date Smoking Tobacco: Never Smokeless Tobacco: Never Sex and Gender Information Value Date Recorded Sex Assigned at Not on file Gender Identity Not on file Sexual Orientation Not on file documented as of this encounter Last Filed Vital Signs Vital Sign Reading Time Taken Comments Blood Pressure 102/62 04/23/2011 8:19 AM EST Pulse - - Temperature - - Respiratory Rate - - Oxygen Saturation - - Inhaled Oxygen Concentration - - Weight 50.3 kg (111 lb) 04/23/2011 8:19 AM EST Height 158.8 cm (5' 2.5) 04/23/2011 8:19 AM EST Body Mass Index 19.98 04/23/2011 8:19 AM EST Body Mass Index Percentile 47.01% 04/23/2011 8:1 9 AM EST Growth Chart: CDC (Girls, 2- 20 Years) documented in this encounter Progress Notes * Javi Guillen PA - 04/23/2011 8:27 AM EST Subjective: Patient ID: Marisela Dukes is a 15 y.o. female. HPI Comments: This is a pleasant 15 year old, here today regarding her left clavicle fracture. DOI: 04-15-2011 She was playing hockey, was checked into the boards, she had an immediate onset of pain and swelling with a deformity noted at the left clavicle. She was seen in the local ED, XR revealed a midshaft clavicle fracture. She was placed in a sling and advised to follow up with orthopedics. She states that her pain is improving steadily, she does get a grinding sensation with bumps or movement. She denies prior injuries, she is otherwise healthy. No significant PMH or PSH. She is very active, plays soccer and hockey. Review of Systems Constitutional: Negative. Musculoskeletal: Negative. Skin: Negative. Objective: Physical Exam Constitutional: She is oriented to person, place, and time and well-developed, well-nourished, and in no distress. Neurological: She is alert and oriented to person, place, and time. Gait normal. Skin: Skin is warm and dry. Psychiatric: Mood and affect normal. Left Shoulder Exam Comments: Comes into the office today with a sling in place. This was removed. Tolerates flexion and extension at the elbow without pain. There is a palpable bump at the midshaft without tenting of the skin. There is crepitus on palpation, and an area of resolving ecchymosis. Normal sensation and motor function distally. Neurologic Exam Mental Status Oriented to person, place, and time. Gait, Coordination, and Reflexes Gait Gait: normal XR shows a midshaft clavicle fracture with superior displacement of the proximal fragment. There henry butterfly fragment spanning the gap. Assessment and Plan: A: Midshaft clavicle fracture P: I spoke at length with the pt and her family, I also reviewed the XR with Dr Newton. We discussed both the surgical and non-surgical options. I do feel that this should heal quite well without surgery, and that the risks of surgery outweigh the benefits. I offered to set them up with one of our shoulder surgeons if they want to further discuss surgery, but they feel comfortable with non operative treatment. They understand the possibility of a mal/non union does exist, though it is extremely unlikely in an otherwise healthy 15 year old. We will follow up in 1-2 weeks, no XR, sooner with problems. documented in this encounter Plan of Treatment Not on file documented as of this encounter Visit Diagnoses Diagnosis Clavicle fracture, shaft- Primary Closed fracture of shaft of clavicle documented in this encounter Care Teams Manager Retention Relationship Specialty Start Date End Date Kenji Stevens III, MD [address] [place] [address] [place] [address] PCP - General 04/19/11 documented as of this encounter
--- OUTSIDE RECORDS SUMMARY | 2024-03-05 12:47 | XMS_ITS | Encounter Summary ---
Author Organization [facility] Address [facility] [place] [place] [address] Care Team Providers Care Loading Manager Name Role Phone Hilda SEARS MD, Kenji Blankenship Primary Care Provide r Reason for Visit * Reason Comments Left Clavicle Fracture DOI 04/22/11 Encounter Details Date Type Department Care Team (Late st Contact Info) Description 05/07/2011 9:20 AM EST [place] [id number] CLINIC, DR [place] Clavicle fracture, shaft (Primary Dx) Discharge Disposition: Home Social History Tobacco Use Types Packs/Day Years Used Date Smoking Tobacco: Never Smokeless Tobacco: Never Sex and Gender Information Value Date Recorded Sex Assigned at Not on file Gender Identity Not on file Sexual Orientation Not on file documented as of this encounter Progress Notes * Javi Guillen PA - 05/07/2011 12:53 PM EST Subjective: Patient ID: Marisela Dukes is [...] XR revealed a midshaft clavicle fracture. She has seen a significant improvement with her pain, no grinding sensation anymore. She is wearing the sling at school only. No N/T, no major questions at this time. Review of Systems Constitutional: Negative. Musculoskeletal: Negative. Skin: Negative. Objective: Physical Exam Constitutional: She is oriented to person, place, and time and well-developed, well-nourished, and in no distress. Neurological: She is alert and oriented to person, place, and time. Gait normal. Skin: Skin is warm and dry. Psychiatric: Mood and affect normal. Left Shoulder Exam Comments: Palpable deformity at the midshaft of the clavicle, mild tenderness wit palpation, no crepitus noted. Normal sensation over lateral deltoid. No pain with IR against resistance, mild discomfort with ER against resistance, felt at the fracture site. Normal sensation and motor function distally. Neurologic Exam Mental Status Oriented to person, place, and time. Gait, Coordination, and Reflexes Gait Gait: normal Assessment and Plan: A: Healing left clavicle fracture P: I spoke at length with the pt today, as well as her mother. She is doing very well. At this point the sling is for comfort only. She does not have to wear it if she is comfortable without it. She should still avoid high risk activities. We will see her back in 4-6 weeks, and anticipate a likely advancement of her activity at that time. documented in this encounter Plan of Treatment Not on file documented as of this encounter Visit Diagnoses Diagnosis Clavicle fracture, shaft- Primary Closed fracture of shaft of clavicle documented in this encounter Care Teams Loading Manager Relationship Specialty Start Date End Date Kenji Stevens III, MD [address] [place] [address] [place] [address] PCP - General 04/19/11 documented as of this encounter
--- OUTSIDE RECORDS SUMMARY | 2024-03-05 12:47 | XMS_ITS | Encounter Summary ---
Author Organization [place] [address] Care Team Providers Care Educational Assistant Name Role Phone Hilda SEARS MD, Kenji Blankenship Primary Care Provide r Reason for Visit * Reason Comments Left Clavicle Fracture F/U LEFT CLAVICAL FX. DOI Encounter Details Date Type Department Care Team (Late st Contact Info) Description 05/28/2011 9:20 AM EST [place] [id number] CLINIC, DR [place] Clavicle fracture, shaft (Primary Dx) Discharge Disposition: Home Social History Tobacco Use Types Packs/Day Years Used Date Smoking Tobacco: Never Smokeless Tobacco: Never Sex and Gender Information Value Date Recorded Sex Assigned at Not on file Gender Identity Not on file Sexual Orientation Not on file documented as of this encounter Progress Notes * Javi Guillen PA - 05/28/2011 9:46 AM EST This is a pleasant 15 year old, here today regarding her left clavicle fracture. DOI: 04-15-2011 She was playing hockey, was checked into the boards, XR revealed a midshaft clavicle fracture. We opted to treat this non operatively. She is now out of her sling entirely, she returned to skating and non contact drill with her hockey team, she has been stick handling. She has no pain. No interval changes, she is very anxious to return to full activity at this point. O: Palpable, non tender bump midshaft of the left clavicle. Full active ROM of shoulder. Excellent strength with resistive testing of IR, ER, and abduction of the shoulder. Normal sensation and motorfunction distally. A: Healing left midshaft clavicle fracture P: I spoke at length with the pt and her mother today. I'd like to hold her out of contact drills for the nest 10 days, if at that time she continues to do well and is pain free, she can return to full practices, and if that goes well, to games. They are comfortable with this approach. They will follow up on a prn basis. documented in this encounter Plan of Treatment Not on file documented as of this encounter Visit Diagnoses Diagnosis Clavicle fracture, shaft- Primary Closed fracture of shaft of clavicle documented in this encounter Care Teams Educational Assistant Relationship Specialty Start Date End Date Kenji Stevens III, MD [address] [place] [address] [place] [address] PCP - General 04/19/11 documented as of this encounter
--- OUTSIDE RECORDS SUMMARY | 2024-03-05 12:47 | XMS_ITS | Encounter Summary ---
Author Organization [facility] Address [facility] [place] [address] Care Team Providers Care Gerontology Aide Name Role Phone Hilda SEARS MD, Kenji Blankenship Primary Care Provide r Encounter Details Date Type Department Care Team (Late st Contact Info) Description 04/16/2011 Orders [place] [phone] Lashon Ybarra MD [facility] [place] [address] Social History Tobacco Use Types Packs/Day Years Used Date Smoking Tobacco: Never Assessed Sex and Gender Information Value Date Recorded Sex Assigned at Not on file Gender Identity Not on file Sexual Orientation Not on file documented as of this encounter Plan of Treatment Not on file documented as of this encounter Procedures Procedure Name Priority Date/Time Associated Diagnosis Comments FILM LIBRARY STORAGE ONLY DX SHOULDER Routine 04/16/2011 8:15 AM EST documented in this encounter Results * FILM LIBRARY- STORAGE ONLY DX SHOULDER (04/16/2011 8:15 AM EST) 04/16/2011 8:15 AM EST Narrative RAD - 09/06/2013 1:41 PM EDT This is a non-reportable exam. Procedure Note Rosendo Nevarez - 09/06/2013 This is a non-reportable exam. Lashon Ybarra MD [facility] FILM LIBRARY ORD ERABLES RAD [address] [facility] [place] [address] documented in this encounter Visit Diagnoses Not on filedocumented in this encounter Care Teams Gerontology Aide Relationship Specialty Start Date End Date Kenji Stevens III, MD [address] [place] [address] [place] [address] PCP - General 04/19/11 documented as of this encounter
== END 2024-03-05 12:53 | disposition home or self-care (01) ==
PROVIDERS: Emergency Provider Emergency Medicine; PCP Internal Medicine
DX: R21 Rash and other nonspecific skin eruption (principal); R06.02 Shortness of breath; Z79.82 Long term (current) use of aspirin
CPT/HCPCS: 36415; 80053; 96374; 96375; 99284; 71046; 83735; 84703; 85025; J1200; J2919